=== PATIENT | male | born 1945 | race Caucasian/White ===

== ENCOUNTER → 2017-04-04 | Outpatient (CLI) | payer MEDICARE, OTHER ==
--- NOTE | 2017-04-04 11:56 | RADIOLOGY REPORT PS360 ---
HIP RT 2-3V W/PELVIS IF PERFOR HISTORY: RT HIP PAIN ORDERING PHYSICIAN: William Cedillo MD PATIENT AGE: 71 years COMPARISON: None FINDINGS: Mild osteoarthritic changes involve the right hip. On the abduction view there is a faint longitudinal lucency through the tip of the greater trochanter consistent with the nondisplaced fracture or ununited ossification center. This is well-circumscribed and does not appear acute. Please correlate clinically. IMPRESSION: 1. Minimal osteoarthritic change of the right hip. 2. Well-circumscribed lucency through the tip of the greater trochanter on the right and could be related to an old fracture or ununited ossification center
== END ==
LOC: RAD 11:15
DX: M25.551 Pain in right hip (principal)